=== PATIENT | male | born 1980 | race Caucasian/White ===

== ENCOUNTER 2018-10-30 13:17 | Emergency (ER) | payer BC ==
[2018-10-30 13:45] VITALS: BP 127/79
[2018-10-30] MEDS ORDERED: Lidocaine 1% MPF* 2 ML VIAL INJ ONE (13:47)
[2018-10-30] MEDS ORDERED: Tetan/Diph/Pertus SYR(Tdap)* 0.5 ML SYR(BOOSTRIX) use SYR IM ONE (13:48)
--- NOTE | 2018-10-30 13:56 | ED ---
Laceration/Wound HPI - HPI Summary HPI Summary: 38-year-old male presents with left hand laceration. He states that he cut it with a saw. He denies any numbness or tingling. He has full range motion his finger. Has no medical conditions. Unsure last tetanus is. No other injury. Area is not actively bleeding. - History of Current Complaint Stated Complaint: CUT TO LFT HAND Time Seen by Provider: 10/30/18 13:41 Pain Intensity: 0 - Allergy/Home Medications Allergies/Adverse Reactions: Allergies Allergy/AdvReac Type Severity Reaction Status Date / Time ciprofloxacin Allergy Rash Verified 10/30/18 13:47 PMH/Surg Hx/FS Hx/Imm Hx Endocrine/Hematology History: Denies: Hx Anticoagulant Therapy, Hx Blood Disorders Respiratory History: Denies: Hx Asthma - Surgical History Surgery Procedure, Year, and Place: 7 L knee surgeries,. hernia and inguinal hernia repair. Infectious Disease History: No Infectious Disease History: Denies: Hx of Known/Suspected MRSA, History Other Infectious Disease, Traveled Outside the in Last 30 Days - Family History Known Family History: Positive: None - Social History Alcohol Use: None Hx Substance Use: No Substance Use Type: Reports: None Hx Tobacco Use: No Smoking Status (MU): Never Smoked Tobacco Type: Smokeless Tobacco Amount Used/How Often: 1 can/day Review of Systems Negative: Fever Negative: Chest Pain Negative: Shortness Of Breath Positive: Other - left hand laceration All Other Systems Reviewed And Are Negative: Yes Physical Exam Triage Information Reviewed: Yes Vital Signs On Initial Exam: Initial Vitals Temp Pulse Resp BP Pulse Ox 98 F 67 16 127/79 99 10/30/18 13:41 10/30/18 13:41 10/30/18 13:41 10/30/18 13:41 10/30/18 13:41 Vital Signs Reviewed: Yes Appearance: Positive: Well-Appearing Skin: Positive: Warm, Dry, Other - 3cm by 1/2cm laceration and 1/2cm by 1/2cm laceration to dorsum of left hand near 3rd metacarpel Head/Face: Positive: Normal Head/Face Inspection Eyes: Positive: Normal, Conjunctiva Clear ENT: Positive: Pharynx normal Respiratory/Lung Sounds: Positive: Clear to Auscultation, Breath Sounds Present Cardiovascular: Positive: Normal, RRR Musculoskeletal: Positive: Strength/ROM Intact - left hand, Other - good pulses Neurological: Positive: Normal Psychiatric: Positive: Normal Procedures - Laceration/Wound Repair 1 Location: Other - left hand Description: Linear Anesthesia: Local, 1.0% Length, Depth and Shape: 3cm by 1/2cm Irrigated w/ Saline (ccs): 500 Laceration/Wound Explored: no foreign body removed Closure: Single Layer Suture Type: Prolene Number of Sutures: 3 Sterile Dressing Applied?: No - telfa and marlena 2 Location: Other - left hand Description: Linear Anesthesia: Local, 1.0% Length, Depth and Shape: 1/2cm by 1/2cm Irrigated w/ Saline (ccs): 500 Laceration/Wound Explored: no foreign body removed Closure: Single Layer Suture Type: Prolene Number of Sutures: 1 Sterile Dressing Applied?: No - telfa and marlena Diagnostics - Vital Signs Vital Signs Temp Pulse Resp BP Pulse Ox 10/30/18 13:41 98 F 67 16 127/79 99 - Laboratory Lab Statement: Any lab studies that have been ordered have been reviewed, and results considered in the medical decision making process. - Radiology hand Radiology Interpretation Completed By: Radiologist Summary of Radiographic Findings: no fracture Laceration Repair Course/Dx - Course Course Of Treatment: 38-year-old male presents with left hand laceration. He states that he cut it with a saw. He denies any numbness or tingling. He has full range motion his finger. Has no medical conditions. Unsure last tetanus is. No other injury. Area is not actively bleeding. On exam has 3 cm by 1/ 2cm laceration of dorsum of left hand. Full range of motion of fingers. X-ray shows no fracture. gave tetanus. clean area and placed 3 sutures in large laceration and one in smaller laceration. Will place on Keflex. patient understand and agrees with plan. - Differential Dx Differental Diagnoses: Abrasion, Avulsion, Laceration - Clinical Impression Provider Diagnoses: Laceration of left hand Discharge - Sign-Out/Discharge Documenting (check all that apply): Patient Departure All imaging exams completed and their final reports reviewed: Yes - Discharge Plan Condition: Good Disposition: HOME Prescriptions: Cephalexin CAP* [Keflex CAP*] 500 mg PO BID #10 cap Patient Education Materials: Care For Your Stitches (ED) Referrals: Reza Maguire MD [Primary Care Provider] - Additional Instructions: Take Keflex twice a day for 5 days Keep area clean and dry for 24 hours, do not soak area Take Tylenol or ibuprofen for pain every 6 hours Return to ED or primary for suture removal in 8-10 days Return to ED if develop signs of infection such as fever, spreading redness, or pus formation - Billing Disposition and Condition Condition: GOOD Disposition: Home
[2018-10-30] MEDS ORDERED: Lidocaine 1%* 5 ML VIAL INJ ONE (14:08)
[2018-10-30] MEDS ORDERED: Lidocaine 1%* 5 ML VIAL ONE (14:09)
== END 2018-10-30 14:40 | disposition home or self-care (01) ==
LOC: UCEAST 13:17
DX: S61.412A Laceration without foreign body of left hand, initial encounter (principal); Z88.1 Allergy status to other antibiotic agents; W31.2XXA Contact with powered woodworking and forming machines, initial encounter; Y92.9 Unspecified place or not applicable
CPT/HCPCS: 12001; 90471; 90715; 99212; G0463

== ENCOUNTER 2024-03-31 10:56 | Inpatient (IN) ==
[2024-04-01] MEDS: Morphine ORAL.SOLN 10 mg 2 mg/ml UDC 5 ml (10 mg) PO PRN (14:30)
[2024-04-01] MEDS: Buprenorp/Nalox 4-1 MG FILM SL SCH (18:04)
[2024-04-01] MEDS: Senna TAB 8.6 mg TAB PO PRN (20:58)
[2024-04-02 07:09] LABS: ABS Basophils 0.1 10^3/uL (0.0-0.1); ABS Eosinophils 0.2 10^3/uL (0.0-0.5); ABS Lymphocytes 1.6 10^3/uL (1.0-4.8); ABS Monocytes 0.5 10^3/uL (0.0-1.1); ABS Neutrophils 3.8 10^3/uL (1.5-7.6); ABS Nucleated RBC 0.01 10^3/ul; Eosinophil % 2.7 %; Hematocrit 28.3 % (38-53); Hemoglobin 9.8 g/dL (13.2-16.3); Lymphocyte % 26.3 %; Mean Corpuscular Hemoglobin 30.5 pg (27-33); Mean Corpuscular Hgb Conc 34.5 g/dL (31-36); Mean Corpuscular Volume 88.2 fL (80-97); Mean Platelet Volume 6.9 fL (7.5-11.2); Nucleated Red Blood Cells % 0.1 %/100WBC (0.0-0.8); Platelet Count 314 10^3/uL (150-450); Red Blood Count 3.21 10^6/uL (4.06-5.63); Red Cell Distribution Width 13.6 % (12-17); White Blood Count 6.2 10^3/uL (3.6-10.2)
[2024-04-02 07:31] LABS: Albumin 3.3 g/dL (3.2-5.2); Albumin/Globulin Ratio 1.3 (1-3); Calcium 8.4 mg/dL (8.6-10.3); Creatinine, Serum 0.61 mg/dL (0.67-1.17); Globulin 2.5 g/dL (2-4); Potassium 4.6 mmol/L (3.5-5.0); Total Bilirubin 0.6 mg/dL (0.2-1.0); Total Protein 5.8 g/dL (6.4-8.9); eGFR CKD-EPI 121.5 (>60)
[2024-04-02] MEDS: Enoxaparin 40 MG/0.4 ML SYR SUBCUT SCH (09:10)
[2024-04-02] MEDS: Buprenorp/Nalox 4-1 MG FILM SL SCH (13:03)
[2024-04-02] MEDS ORDERED: Morphine ORAL.SOLN 10 mg 2 mg/ml UDC 5 ml (10 mg) PO PRN ×2 (13:43→13:45)
[2024-04-02] MEDS: Morphine ORAL.SOLN 10 mg 2 mg/ml UDC 5 ml (10 mg) PO PRN (15:12)
[2024-04-03] MEDS: Magnesium Hydroxide LIQ 30 ML UDC PO PRN (15:07)
[2024-04-03] MEDS: Buprenorp/Nalox 4-1 MG FILM SL SCH (20:40)
[2024-04-04 06:49] LABS: ABS Eosinophils 0.2 10^3/uL (0.0-0.5); ABS Lymphocytes 1.9 10^3/uL (1.0-4.8); ABS Monocytes 0.5 10^3/uL (0.0-1.1); ABS Neutrophils 3.1 10^3/uL (1.5-7.6); Hematocrit 27.4 % (38-53); Hemoglobin 9.3 g/dL (13.2-16.3); Mean Corpuscular Hemoglobin 29.9 pg (27-33); Mean Corpuscular Hgb Conc 33.9 g/dL (31-36); Mean Corpuscular Volume 88.4 fL (80-97); Mean Platelet Volume 6.3 fL (7.5-11.2); Nucleated Red Blood Cells % 0.1 %/100WBC (0.0-0.8); Platelet Count 416 10^3/uL (150-450); Red Cell Distribution Width 13.7 % (12-17); White Blood Count 5.7 10^3/uL (3.6-10.2)
[2024-04-04 08:31] LABS: Albumin 3.2 g/dL (3.2-5.2); Albumin/Globulin Ratio 1.4 (1-3); Direct Bilirubin 0.1 mg/dL (0.03-0.18); Globulin 2.3 g/dL (2-4); Indirect Bilirubin 0.3 mg/dL (0.3-1.0); Total Bilirubin 0.4 mg/dL (0.2-1.0); Total Protein 5.5 g/dL (6.4-8.9)
[2024-04-04] MEDS: Nicotine PATCH 14 MG/24 HR PATCH TRANSDERM SCH (10:06)
[2024-04-04] MEDS: Buprenorp/Nalox 4-1 MG FILM SL PRN (14:30)
[2024-04-06] MEDS: Buprenorp/Nalox 8-2 MG FILM SL SCH (10:47)
[2024-04-07 06:42] VITALS: BP 129/76
== END 2024-04-07 16:05 | disposition home or self-care (01) | DRG 860 ==
LOC: PMRU 04-01 11:11
PROVIDERS: ADMIT Physical Medicine & Rehabilitation; ATTEND Physical Medicine & Rehabilitation